=== PATIENT | female | born 1995 | race Caucasian/White ===

== ENCOUNTER 2016-04-15 10:00 | Outpatient (CLI) | payer MEDICAID ==
[2016-04-20] MEDS ORDERED: PRENATAL VIT1 TAB PO (10:53)
[2016-04-20] MEDS ORDERED: MOTRIN-DPS800 MG PO (10:53)
[2016-04-20] MEDS ORDERED: FEOSOL-DPS325 MG PO (10:53)
[2016-04-20] MEDS ORDERED: LAN-O-SOOTHE7 GM TP (10:54)
[2016-04-20] MEDS ORDERED: COLACE-DPS100 MG PO (10:54)
[2016-04-20] MEDS ORDERED: DERMOPLAST SPRA56 GM TP (10:54)
[2016-04-20] MEDS ORDERED: TYLENOL #3 DPS1 TAB PO (10:54)
== END 2016-04-15 11:50 | disposition home or self-care (01) ==
LOC: BC 10:00 → 2LDRP 10:00 → BC 11:50
DX: O47.1 False labor at or after 37 completed weeks of gestation (principal); Z3A.39 39 weeks gestation of pregnancy

== ENCOUNTER 2016-04-16 05:28 | Outpatient (CLI) | payer MEDICAID ==
[2016-04-20] MEDS ORDERED: FEOSOL-DPS325 MG PO (10:53)
[2016-04-20] MEDS ORDERED: PRENATAL VIT1 TAB PO (10:53)
[2016-04-20] MEDS ORDERED: MOTRIN-DPS800 MG PO (10:53)
[2016-04-20] MEDS ORDERED: COLACE-DPS100 MG PO (10:54)
[2016-04-20] MEDS ORDERED: TYLENOL #3 DPS1 TAB PO (10:54)
[2016-04-20] MEDS ORDERED: DERMOPLAST SPRA56 GM TP (10:54)
[2016-04-20] MEDS ORDERED: LAN-O-SOOTHE7 GM TP (10:54)
== END 2016-04-16 11:25 | disposition home or self-care (01) ==
LOC: 2LDRP 05:28 → BC 05:28
DX: O47.1 False labor at or after 37 completed weeks of gestation (principal); Z3A.39 39 weeks gestation of pregnancy